=== PATIENT | male | born 1970 | race Hispanic/Latino ===

== ENCOUNTER 2023-02-24 16:39 | Emergency (ER) | payer BC, SELFPAY | END 2023-02-24 17:40 | disposition home or self-care (01) | LOC: MADERS 16:39 | DX: J10.1 Influenza due to other identified influenza virus with other respiratory manifestations (principal); E11.9 Type 2 diabetes mellitus without complications; Z79.84 Long term (current) use of oral hypoglycemic drugs | CPT/HCPCS: 87804; 99283 ==